=== PATIENT | female | born 1985 | race American Indian/Alaskan Native ===

== ENCOUNTER 2018-08-21 17:10 | Outpatient (CLI) | payer OTHER ==
[2018-08-21 18:00] LABS: Bilirubin,Urine NEG (Negative); Blood,Urine NEG (Negative); Color,Urine Straw (Yellow); Protein,Urine <15 mg/dL mg/dL (Negative); Urobilinogen,Urine < 2.0 mg/dL (<2.0)
[2018-08-21] MEDS ORDERED: TYLENOL PO ONE (18:00)
[2018-08-21 18:11] LABS: Hematocrit 36.8 % (30.3-42.9); Hemoglobin 12.3 gm/dl (10.1-14.3); Mean Corpuscular HGB Conc 33 % (30-34); Mean Corpuscular Hemoglobin 28 pg (28-32); Mean Corpuscular Volume 85 fl (79-97); Platelet Count 284 K/mm3 (140-440); Red Blood Count 4.32 M/mm3 (3.65-5.03); Red Cell Distribution Width 15.7 % (13.2-15.2)
[2018-08-21 18:27] LABS: Alanine Aminotransferase 26 units/L (7-56)
[2018-08-21] MEDS ORDERED: TYLENOL PO PRN (18:45)
[2018-08-21 20:05] LABS: Uric Acid 3.4 mg/dL (3.5-7.6)
--- NOTE | 2018-08-22 09:08 | History and Physical Report ---
History of Present Illness Chief complaint: transferred from clinic for elevated blood pressures History of present illness: 33yo G P EFRAÍN 38wks transferred from clinic by Dr. Cleary for evaluation for elevated blood pressures and proteinuria. Per verbal report the 24hr protein was >700mg/24hr. She reports good movement, no loss of fluid and no vaginal bleeding. He records are unavailable at this time. She is a patient at [facility]. Past History - Obstetrical History : 2 Medications and Allergies Allergies Allergy/AdvReac Type Severity Reaction Status Date / Time No Known Allergies Allergy Unverified 08/21/18 17:21 Active Meds: Active Medications Acetaminophen (Tylenol) 650 mg PO Q6H PRN PRN Reason: Pain, Mild (1-3) - Vital Signs Vital signs: Vital Signs Pulse BP 87 135/90 08/21/18 17:26 08/21/18 17:26 Temp Pulse Resp BP Pulse Ox 97.2 F L 78 18 133/85 08/22/18 08:10 08/22/18 08:10 08/22/18 08:10 08/22/18 08:10 Results Result Diagrams: 08/21/18 17:32 08/21/18 17:32 Abnormal lab results 08/21/18 08/21/18 Range/Units 17:32 17:32 RDW 15.7 H (13.2-15.2) % Creatinine 0.6 L (0.7-1.2) mg/dL Uric Acid 3.4 L (3.5-7.6) mg/dL Lactate Dehydrogenase 215 H (91-180) units/L All other labs normal. Assessment and Plan - Patient Problems (1) Gestational hypertension Current Visit: Yes Status: Acute Plan to address problem: New-onset gestational hypertension based on verbal report. Obtain records from clinic. (2) 38 weeks gestation of Current Visit: Yes Status: Acute Plan to address problem: Admit 23hr observation Collect 24hr urine protein and PIH labs External monitoring Obtain records from clinic. Evaluate for preeclampsia. Re-evaluate timing of delivery based on blood pressures, proteinuria, PIH labs, clinical presentation.
[2018-08-22 22:28] LABS: Creatinine 24 Hour,Urine 1.5 (0.8-2.8); Creatinine,Urine 42.4 mg/dL (0.1-20.0)
--- NOTE | 2018-08-23 09:31 | Progress Note ---
Assessment and Plan A: at 38 weeks, 1 day gestation. Elevated blood pressures. P: Labetalol 200 mg po BID. BPP, JUANI, umbilical cord doppler studies ordered. Consulted with Dr. Bullard re: this patient. Discussed plan of care with patient and her partner. Subjective - Subjective Date of service: 08/23/18 Principal diagnosis: at 38 weeks, 1 day gestation; elevated blood pressure Interval history: 33 year old was admitted yesterday for BP monitoring, preeclamptic labs, and 24 hour urine for total protein. Patient denies headache, visual disturbance, nausea or vomiting, edema, epigastric pain, or any other problems. Patient reports active movement. She denies leaking of fluid or vaginal bleeding. Patient reports: movement normal, no new complaints, no loss of fluid, no vaginal bleeding Objective - Vital Signs Vital Signs: Vital Signs - 12hr 08/22/18 08/22/18 08/22/18 21:51 21:57 22:02 Temperature Pulse Rate 82 81 67 Respiratory Rate Blood Pressure O2 Sat by Pulse 99 99 99 Oximetry 08/22/18 08/22/18 08/22/18 22:07 22:10 22:11 Temperature Pulse Rate 74 83 86 Respiratory Rate Blood Pressure 120/69 O2 Sat by Pulse 98 100 Oximetry 08/22/18 08/22/18 08/22/18 22:16 22:21 22:26 Temperature Pulse Rate 96 H 89 89 Respiratory Rate Blood Pressure O2 Sat by Pulse 100 99 99 Oximetry 08/22/18 08/22/18 08/22/18 23:09 23:39 23:42 Temperature 97.3 F L Pulse Rate 79 99 H 82 Respiratory 18 Rate Blood Pressure 137/88 131/94 O2 Sat by Pulse 100 Oximetry 08/23/18 08/23/18 08/23/18 00:09 01:09 01:31 Temperature Pulse Rate 77 82 85 Respiratory Rate Blood Pressure 107/66 114/71 O2 Sat by Pulse 100 Oximetry 08/23/18 08/23/18 08/23/18 01:36 01:41 01:46 Temperature Pulse Rate 72 69 69 Respiratory Rate Blood Pressure O2 Sat by Pulse 100 100 100 Oximetry 08/23/18 08/23/18 08/23/18 01:51 01:56 02:01 Temperature Pulse Rate 70 72 73 Respiratory Rate Blood Pressure O2 Sat by Pulse 100 100 100 Oximetry 08/23/18 08/23/18 08/23/18 02:06 02:09 02:11 Temperature Pulse Rate 73 67 70 Respiratory Rate Blood Pressure 108/74 O2 Sat by Pulse 100 100 Oximetry 08/23/18 08/23/18 08/23/18 03:40 03:41 05:44 Temperature 97.7 F Pulse Rate 75 74 77 Respiratory 20 Rate Blood Pressure 135/96 137/97 120/70 O2 Sat by Pulse 100 Oximetry 08/23/18 08/23/18 08/23/18 06:09 07:09 08:09 Temperature 97.0 F L Pulse Rate 75 78 86 Respiratory 19 Rate Blood Pressure 115/67 132/88 131/89 O2 Sat by Pulse 100 Oximetry 08/23/18 09:09 Temperature Pulse Rate 83 Respiratory Rate Blood Pressure 133/87 O2 Sat by Pulse Oximetry - Exam Narrative Exam: 24 hour urine total protein 252 mg. Platelet count and AST/ALT normal. Abdomen: Present: normal appearance, soft. Absent: distention, tenderness, guarding, rigidity Uterus: Present: normal, fundal height above umbilicus FHR: category 1 Uterine Contraction Monitor Mode: External Uterine Contraction Pattern: Irregular Uterine Contraction Intensity: Mild Extremities: normal - Labs Labs: Abnormal Labs 08/21/18 08/21/18 08/21/18 17:32 17:32 18:44 RDW 15.7 H Creatinine 0.6 L Uric Acid 3.4 L Lactate Dehydrogenase 215 H Urine Creatinine 42.4 H Ur Total Protein 24 Hr 252.00 H Laboratory Results - last 24 hr 08/21/18 18:44 Urine Total Volume 3600 Urine Creatinine 42.4 H Ur Creatinine 24 Hour 1.5 Ur Total Protein 24 Hr 252.00 H Urine Total Protein 7
[2018-08-23] MEDS ORDERED: NORMODYNE PO SCH (10:00)
--- NOTE | 2018-08-23 15:50 | Ultrasound Report ---
PROCEDURE: US OB BPP WO NON-STRESS TECHNIQUE: Sonographic evaluation for breathing, movement, tone, and amniotic flui d volume was performed. HISTORY: well being COMPARISONS: None . FINDINGS: FETUS Amniotic fluid volume Normal-score 2. At least one vertical pocket >2 cm or more in vertical axis . breathing: Normal-score 2 . movement: 0 tone: Normal-score 2 . Score: 6/8 heart rate 149 bpm. IMPRESSION: Biophysical profile score 6/8 . This document is electronically signed by Jaison Ramon MD., August 23 2018 03:48:01 PM ET
--- NOTE | 2018-08-23 16:04 | Ultrasound Report ---
PROCEDURE: US OB VELOCIMETRY UMBILCAL ART TECHNIQUE: Doppler evaluation of the umbilical artery was obtained HISTORY: well being COMPARISONS: FINDINGS: heart rate of 149 bpm is detected. Systolic to diastolic ratio of the umbilical artery shows av erage of 2.32 which is normal. Resistive index is normal measuring 0.56. Good diastolic flow is visua lized. IMPRESSION: Normal exam.. This document is electronically signed by Jaison Ramon MD., August 23 2018 04:03:16 PM ET
--- NOTE | 2018-08-23 16:07 | Ultrasound Report ---
PROCEDURE: US OB LIMITED TECHNIQUE: Transabdominal OB ultrasound was performed to evaluate positioning, the amniotic fl uid index and heart rate. HISTORY: Evaluate amniotic fluid index COMPARISONS: FINDINGS: There is a single living intrauterine gestation currently visualized vertex presentation with a heart rate of 149 bpm. Subjectively the amount of amniotic fluid appears normal. Normal amniotic fluid ind ex measured at 18.5 cm. Detailed exam of the anatomy was not performed as this was not requeste d. Evaluation of the placenta was not performed. IMPRESSION: Single living intrauterine gestation visualized currently vertex presentation. Both subjectively and by amniotic fluid index amount of amniotic fluid appears normal.. This document is electronically signed by Jaison Ramon MD., August 23 2018 04:05:43 PM ET
[2018-08-23 20:15] VITALS: BP 135/89
--- NOTE | 2018-08-23 20:24 | Event Note ---
Date: 08/23/18 BPs controlled with Labetalol and Norvasc. Cervix closed, thick, high, posterior, firm. BPP 8/8. Normal JUANI. Normal cord dopplers. Consulted with Dr. Bullard re: patient's BPs, cervical exam, and ultrasound results. Dr. Bullard orders to discharge patient home today and have patient follow up at [facility] office on Saturday08/25/18 for BP recheck and cervix recheck. The following Rx were called in to [facility] pharmacy per Dr. Bullard's order: Labetalol 200 mg, #60, 1 po BID and Norvasc 10 mg, #30, 1 po daily. Advised patient to follow up with MD at [facility] on Saturday08/25/18 for BP check and cervix recheck. BP warning signs discussed with patient. Daily movement counting discussed with patient. Possible side effects of medications discussed with patient. Patient voiced understanding of all instructions.
--- NOTE | 2018-08-23 20:29 | Discharge Summary ---
Providers - Providers Date of Admission: 08/22/2018 Date of discharge: 08/30/18 Attending physician: JAMES VIVAS MD Primary care physician: JAMES VIVAS MD Hospitalization Reason for admission: other (Term ; hypertension controlled) Discharge diagnosis: other (; hypertension) Pertinent studies: Labs, ultrasound Hospital course: Normal hospital course Condition at discharge: Good Disposition: DC-[id number] TO HOME OR SELFCARE - Discharge Diagnoses (1) 38 weeks gestation of Status: Acute (2) Hypertension affecting Status: Acute Plan - Provider Discharge Summary Additional instructions: Call your doctor immediately for: Take medications recommended by and prescribed (Labetalol and Norvasc called to [facility] pharmacy); follow up at [facility] on Saturday08/25/18. Return promptly if any problems. - Follow up plan Follow up: JAMES VIVAS MD [Primary Care Provider] - 08/25/18
[2018-08-23] MEDS ORDERED: NORVASC PO SCH (21:00)
--- NOTE | 2018-08-24 15:11 | Ultrasound Report ---
PROCEDURE: US OB BPP WO NON-STRESS HISTORY: BPP FINDINGS: Real-time ultrasound of the pelvis was performed with attention to the gravid uterus. Biophysical profile was 8 of 8. cardiac rate is present at 132 bpm. Amniotic fluid index was no t measured. Deepest pocket the 6.0 cm. lie is unclear from the images were submitted. IMPRESSION: Biophysical profile 8 of 8 This document is electronically signed by Edwin Molina MD., August 24 2018 03:08:49 PM ET
== END 2018-08-23 20:56 | disposition home or self-care (01) ==
LOC: TRG 17:10 → LD 20:25 → TRG 08-23 20:56
PROVIDERS: ATTEND Obstetrics & Gynecology
DX: O47.1 False labor at or after 37 completed weeks of gestation (principal); Z3A.38 38 weeks gestation of pregnancy
CPT/HCPCS: 36415; 76815; 76819; 76820; 81001; 82565; 82570; 83615; 84156; 84450; 84460; 84550; 85027